=== PATIENT | female | born 1995 | race African-American/Black ===

== ENCOUNTER 2021-08-08 21:38 | Emergency (ER) | payer SELFPAY ==
[2021-08-08 22:28] VITALS: BP 124/72; PULSE 85; RESP 16; TEMP 36.7; O2SAT 98
--- NOTE | 2021-08-08 23:27 | ED.FEMALEGU ---
HPI - Female Genitourinary General Chief complaint: HANDLE SEWER Stated complaint: /VAG BLEED/CRAMPS History of Present Illness HPI Narrative: Patient is a 25-year-old female who is currently here for evaluation of multiple medical complaint. Patient states her symptoms began when she was driving earlier and she became suddenly lightheaded. She pulled over on the side of the road, and a public safety police stopped to help her. She was reportedly taken into police custody due to suspected DUI. She was eventually released, but she states that while she was in the holding cell she had a sudden gush of fluids from her vagina that she does not believe was urine, and additionally noticed some vaginal bleeding. This was accompanied by stabbing lower abdominal pain. Patient is unsure how far along she is, reportedly told RN that she was 2 months, but she tells me she is about 4 to 5 months. She has not had an ultrasound to confirm IUP nor has she sought out any care. Patient tells me she is in town for a , but she reportedly told the RN that she was in town to get an elective . Additionally she told the RN that she attempted to give herself an by using her fingers earlier today, but she did not tell this to me. Patient states her is not desired. Review of Systems Review of Systems: Gen: Denies fevers or chills Eyes: Denies eye pain or visual change ENT: Denies congestion Respiratory: Denies shortness of breath or cough CV: Denies chest pain or palpitations GI: Reports abdominal pain. no nausea, emesis or diarrhea : Reports vaginal bleeding and gush of fluids. denies burning, urgency, frequency or hematuria Musculoskeletal: Denies back pain or muscle pain Neuro: Denies numbness, tingling, weakness or focal weakness Skin: Denies rash Except as documented, all other systems reviewed and negative All systems reviewed & are unremarkable except as noted in HPI and below Exam Narrative: APPEARANCE: Uncomfortable appearing. Tearful. Head: normocephalic and atraumatic. EYES: PERRLA/EOMI, conjunctivae clear NOSE: No nasal drainage EARS: External ear normal in appearance THROAT: Oropharynx is clear. Mucous membranes are moist. NECK: Supple. No adenopathy, no masses. RESPIRATORY: Airway patent, respirations nonlabored. Clear to auscultation bilaterally, no rales, rhonchi, wheezing. CARDIOVASCULAR: Regular rate and rhythm without murmurs, rubs, or gallops. ABDOMINAL: Gravid uterus. Normoactive bowel sounds. Soft, nontender. No rebound tenderness or guarding. MUSCULOSKELETAL: Extremities are warm and well-perfused. Moves all extremities well. No edema. : Performed with lens marker Gloria. Moderate amount of bright red blood noted in vaginal vault. Cervical os is closed. NEURO: Normal speech. No focal neurologic deficits. SKIN: Skin is warm and dry. No rashes. PSYCHIATRIC: Tearful, labile mood. Course Vital Signs Vital signs: Vital Signs Temperature 98.0 F 08/08/21 22:28 Pulse Rate 85 08/08/21 22:28 Respiratory Rate 16 08/08/21 22:28 Blood Pressure 124/72 08/08/21 22:28 Pulse Oximetry 98 08/08/21 22:28 Oxygen Delivery Room Air 08/08/21 22:28 Temperature 98.0 F 08/08/21 22:28 Pulse Rate 85 08/08/21 22:28 Respiratory Rate 16 08/08/21 22:28 Blood Pressure 124/72 08/08/21 22:28 Pulse Oximetry 98 08/08/21 22:28 Oxygen Delivery Room Air 08/08/21 22:28 MDM - Female Genitourinary MDM Narrative Medical decision making narrative: 25-year-old female here for evaluation of vaginal bleeding and sudden gush of fluids today. Patient appears intoxicated, she is uncooperative, agitated, with a labile mood. She is refusing lab work, imaging, and urinalysis studies. When asked why she came to the emergency department patient states she wants an ultrasound; but then refuses the study. I was able to do a pelvic exam, and the cervical os was closed with moderate amount of blo
--- NOTE | 2021-08-08 23:27 | PC.NURSE ---
Upon arrival she refused to give me (karena valero) her due date or last menstrual cycle. Info needed to decide if she can be treated in ED or she needs to be transferred to OB. Pt continues to refuse to let staff obtain labs and urine. Pt refuses ultrasound after tech was called in from home. Pt very selective of which staff she will talk to. She has refused most of the staff on duty. She has made multiple lengthy phone calls in the [place]. and PA aware of pt behavior.
--- NOTE | 2021-08-08 23:28 | PC.NURSE ---
this Patient stated to this RN, You people are not nice to black people this is crazy. you don't have to be rude to us Patient is currently refusing all treatment at this time. Patient states, I just want to wait for my family to get here before we do anything. This RN stated that it is okay. when this RN was talking to a staff member The patient stated, I heard what you said your not nice to me This patient is currently upset because we cannot tell her anything that is going on. This RN state we don't know what is going on until we run tests and we cannot tell you anything until we know what's going on.
--- NOTE | 2021-08-08 23:38 | PC.NURSE ---
pt eloped at this time. she was seen exiting through the [facility]
== END 2021-08-08 23:47 | disposition left against medical advice (07) ==
LOC: ANHED 23:48
PROVIDERS: Physician Assistant; Emergency Provider Emergency Medicine
DX: O46.90 Antepartum hemorrhage, unspecified, unspecified trimester (principal); Z3A.00 Weeks of gestation of pregnancy not specified
CPT/HCPCS: 87070; 87491; 87591; 87808; 99283; 99284